=== PATIENT | female | born 1980 | race Caucasian/White ===

== ENCOUNTER → 2016-09-12 | Outpatient (CLI) | payer BC ==
[~2016-09-12] MED LIST: FLUT1AER ORAL INH; IBUP200C62 PO; PROM5SYR PO; PSEU120T64 PO
[2016-09-12 08:39] LABS: BASOPHILS # (AUTO) 0.1 T/MM3 (0-0.2); BASOPHILS % (AUTO) 1.1 % (0-2); EOSINOPHILS # (AUTO) 0.3 T/MM3 (0-0.5); EOSINOPHILS % (AUTO) 3.3 % (0-4); HCT - HEMATOCRIT 40.9 % (36-46); HGB - HEMOGLOBIN 13.9 GM/DL (12-16); IMMATURE GRANULOCYTE # (AUTO) 0.01 T/MM3 (0.00-0.03); IMMATURE GRANULOCYTE % (AUTO) 0.1 % (0.0-0.5); LYMPHOCYTES % (AUTO) 24.4 % (23-45); MEAN CORPUSCULAR HGB 31.2 UUG (26-34); MEAN CORPUSCULAR VOLUME 91.7 UM3 (80-100); MONOCYTES # (AUTO) 0.7 T/MM3 (0-0.8); MONOCYTES % (AUTO) 8.1 % (0-9.0); NEUTROPHILS #(AUTO)-ABSOLUTE 5.2 T/MM3 (1.8-7.7); RED BLOOD COUNT 4.46 M/MM3 (4.00-5.20); WBC - WHITE BLOOD COUNT 8.2 T/MM3 (4.5-11.0)
[2016-09-12 08:40] LABS: BLOOD, URINE NEGATIVE (NEGATIVE); COLOR,URINE YELLOW (YELLOW); LEUKOCYTE ESTERASE ,URINE NEGATIVE (NEGATIVE); NITRITE,URINE NEGATIVE (NEGATIVE); UROBILINOGEN,URINE 0.2 EU/DL (NORMAL)
[2016-09-12 08:48] LABS: BACTERIA,URINE NEGATIVE (NEGATIVE); RBC,URINE NONE SEEN /HPF (0-3); WBC,URINE NONE SEEN /HPF (0-5)
[2016-09-12 08:49] LABS: ALBUMIN/GLOBULIN RATIO 1.4 RATIO (1.1-2.2); ALKALINE PHOSPHATASE 63 U/L (38-126); ALT (SGPT) 76 U/L (9-52); ANION GAP 12 MEQ/L (5-15); AST (SGOT) 51 U/L (14-36); BUN/CREATININE RATIO 23 RATIO (6-26); CALCIUM 8.9 MG/DL (8.4-10.2); CHLORIDE 109 MEQ/L (98-107); CO2 - CARBON DIOXIDE 27 MEQ/L (22-30); CREATININE 0.7 MG/DL (0.7-1.2); GLOMERULAR FILTRATION RATE 95; GLUCOSE 97 MG/DL (65-110); POTASSIUM 4.8 MEQ/L (3.6-5); SODIUM 148 MEQ/L (134-144); TOTAL PROTEIN 6.9 G/DL (6.3-8.2)
[2016-09-12 09:19] LABS: THYROID STIM HORMONE-TSH 1.72 MIU/L (0.47-4.68)
[2016-09-13 00:36] LABS: RISK FACTOR 4.2 RATIO (0-4.0)
== END ==
LOC: LAB 08:05
PROVIDERS: ATTEND Family Medicine
DX: Z00.00 Encounter for general adult medical examination without abnormal findings (principal); N92.1 Excessive and frequent menstruation with irregular cycle; N93.9 Abnormal uterine and vaginal bleeding, unspecified
CPT/HCPCS: 36415; 80053; 80061; 81001; 84436; 84443; 85025

== ENCOUNTER → 2016-09-22 | Outpatient (CLI) | payer BC ==
[2016-09-22 12:20] LABS: ALBUMIN 4.6 G/DL (3.5-5.0); ALBUMIN/GLOBULIN RATIO 1.6 RATIO (1.1-2.2); ALKALINE PHOSPHATASE 70 U/L (38-126); ALT (SGPT) 61 U/L (9-52); ANION GAP 13 MEQ/L (5-15); AST (SGOT) 35 U/L (14-36); BUN/CREATININE RATIO 19 RATIO (6-26); CALCIUM 9.4 MG/DL (8.4-10.2); CHLORIDE 110 MEQ/L (98-107); CO2 - CARBON DIOXIDE 25 MEQ/L (22-30); CREATININE 0.8 MG/DL (0.7-1.2); GLOMERULAR FILTRATION RATE 82; GLUCOSE 99 MG/DL (65-110); POTASSIUM 4.5 MEQ/L (3.6-5); SODIUM 148 MEQ/L (134-144); TOTAL PROTEIN 7.4 G/DL (6.3-8.2)
== END ==
LOC: LAB 11:39
PROVIDERS: ATTEND Family Medicine
DX: R94.5 Abnormal results of liver function studies (principal)
CPT/HCPCS: 36415; 80053

== ENCOUNTER → 2016-10-10 | Outpatient (CLI) | payer BC ==
[2016-10-10 08:47] LABS: ALBUMIN 4.4 G/DL (3.5-5.0); ALBUMIN/GLOBULIN RATIO 1.6 RATIO (1.1-2.2); ALKALINE PHOSPHATASE 68 U/L (38-126); ALT (SGPT) 60 U/L (9-52); ANION GAP 14 MEQ/L (5-15); AST (SGOT) 33 U/L (14-36); BUN/CREATININE RATIO 18 RATIO (6-26); CALCIUM 9.5 MG/DL (8.4-10.2); CHLORIDE 110 MEQ/L (98-107); CO2 - CARBON DIOXIDE 25 MEQ/L (22-30); CREATININE 0.8 MG/DL (0.7-1.2); GLOMERULAR FILTRATION RATE 82; GLUCOSE 104 MG/DL (65-110); POTASSIUM 4.7 MEQ/L (3.6-5); SODIUM 149 MEQ/L (134-144); TOTAL PROTEIN 7.1 G/DL (6.3-8.2)
== END ==
LOC: LAB 08:15
PROVIDERS: ATTEND Family Medicine
DX: R94.5 Abnormal results of liver function studies (principal)
CPT/HCPCS: 36415; 80053